=== PATIENT | male | born 1970 | race Caucasian/White ===

== ENCOUNTER 2016-10-12 11:07 | Emergency (ER) | payer OTHER ==
[2016-10-12 11:26] VITALS: O2SAT 97
--- NOTE | 2016-10-12 11:33 | ERPHSYRPT ---
- History of Present Illness Time Seen by Provider: 10/12/16 11:30 Source: patient Exam Limitations: no limitations Patient Subjective Stated Complaint: LEFT KNEE PAIN LEVEL 10 WHEN WALKING LEVEL 3 WHEN LAYING. PT WAS CUTTING A LIMB THAT WAS ON THE GROUND PT DIDN'T KNOW THAT THERE WAS ANOTHER LIMB ATTACHED AND IT FELL ON HIS KNEE. PT DID NOT FALL THE LIMB APPLIED A BUNCH PF PRESSURE. Triage Nursing Assessment: PT WALKED INTO ER PUTTING LIGHT PRESSURE ON THE LEFT KNEE AND NOT BENDING THE KNEE. SKIN IS PINK WARM AND DRY. NO OPEN AREA NOR BRUISING TO THE LEFT KNEE. RESPIRATIONS EVEN AND NON LABORED. Physician History: Patient states that he was sawing a fallen tree, but did not notice there was another tree below. States when he cut the top tree it slid hitting him to the left knee area. Also states that he twisted his knee as well. There is minimal signs of trauma to knee, but states that he has a dull ache to the peripatellar area. Patient also able to ambulate but states it is uncomfortable with weight bearing. Denies any numbness, tingling or weakness distally. Denies any other injuries at this time. Method of Injury: direct blow, twisted Occurred: just prior to arrival Quality: intermittent, aching Severity of Pain-Max: moderate Severity of Pain-Current: moderate Lower Extremities Pain: knee: left Modifying Factors: Improves With: immobilization (improves), movement (worsens) Associated Symptoms: other (able to bear wt.), No dizzy Allergies/Adverse Reactions: No Known Allergies Allergy (Verified 10/12/16 11:35) Home Medications: No Home Meds 1 [facility] 10/12/16 [History] Hx Tetanus, Diphtheria Vaccination/Date Given: Yes (UNKNOWN) Hx Influenza Vaccination/Date Given: Yes (2017) Hx Pneumococcal Vaccination/Date Given: No Immunizations Up to Date: Yes - Review of Systems Constitutional: No Fever, No Chills Eyes: No Symptoms Ears, Nose, & Throat: No Symptoms Respiratory: No Cough, No Dyspnea Cardiac: No Chest Pain, No Edema, No Syncope Abdominal/Gastrointestinal: No Abdominal Pain, No Nausea, No Vomiting, No Diarrhea Genitourinary Symptoms: No Dysuria Musculoskeletal: Joint Pain (L Knee), No Back Pain, No Neck Pain, No Deformity, No Joint Swelling Skin: No Rash Neurological: No Dizziness, No Focal Weakness, No Sensory Changes Psychological: No Symptoms Endocrine: No Symptoms All Other Systems: Reviewed and Negative - Past Medical History Pertinent Past Medical History: Yes Neurological History: No Pertinent History ENT History: No Pertinent History Cardiac History: No Pertinent History Respiratory History: No Pertinent History Endocrine Medical History: No Pertinent History Musculoskeletal History: No Pertinent History GI Medical History: No Pertinent History History: No Pertinent History Psycho-Social History: No Pertinent History Male Reproductive Disorders: No Pertinent History - Past Surgical History Past Surgical History: Yes Neuro Surgical History: No Pertinent History Cardiac: No Pertinent History Respiratory: No Pertinent History Gastrointestinal: No Pertinent History Genitourinary: No Pertinent History Musculoskeletal: No Pertinent History Male Surgical History: No Pertinent History Other Surgical History: WRIST SURGERY-. DENATL SURGEY- - Social History Smoking Status: Never smoker Exposure to second hand smoke: No Drug Use: none Patient Lives Alone: No - Nursing Vital Signs Nursing Vital Signs: Initial Vital Signs Temperature 97.8 F Temperature Source Oral Pulse Rate 69 Respiratory Rate 18 Blood Pressure [Left Arm] 131/88 Pain Intensity 3 - Physical Exam General Appearance: alert Eyes, Ears, Nose, Throat Exam: moist mucous membranes Neck Exam: non-tender, supple Cardiovascular/Respiratory Exam: chest non-tender, normal breath sounds, regular rate/rhythm, no respiratory distress Gastrointestinal/Abdominal Exam: non-tender, guarding Back Exam: normal inspection, No vertebral tenderness Hips Exam: bilateral: non-tender, normal inspection, normal range of motion Legs Exam: bilateral leg: non-tender, normal inspection, normal range of motion Knees Exam: right knee: non-tender, normal range of motion, left knee: bone tenderness (Min tenderness to the patella area), pain (Min tenderness to the patella area), bilateral knee: normal inspection, no evidence of injury Ankle Exam: bilateral ankle: non-tender, normal inspection, normal range of motion, no evidence of injury Neuro/Tendon Exam: normal sensation, normal motor functions Mental Status Exam: alert, oriented x 3, cooperative Skin Exam: normal color, warm, dry SpO2: 97 Oxygen Delivery: Room Air - Course Nursing assessment & vital signs reviewed: Yes - Radiology Exams Left Knee X-ray Interpretation: Interpreted by me, Teleradiologist Report, No Fracture Ordered Tests: Active Orders 24 hr Category Date Time Status KNEE (3 VIEWS) Stat Exams 10/12/16 11:35 Taken Medication Summary Discontinued Medications Generic Name Dose Route Start Last Admin Trade Name Marsha PRN Reason Stop Dose Admin Ibuprofen 600 mg 10/12/16 11:35 10/12/16 11:53 Motrin 600 Mg PO 10/12/16 11:36 600 mg STAT ONE Administration Ibuprofen Confirm 10/12/16 11:39 Motrin 600 Mg Administered 10/12/16 11:40 Dose 600 mg .ROUTE .STK-MED ONE - Progress Progress: improved Progress Note: 10/12/16 12:01 patient was given Motrin 600 mg with some relief of his symptoms. Counseled pt/family regarding: diagnosis, rad results - Departure Time of Disposition: 12:02 Departure Disposition: Home Clinical Impression: Contusion of left knee Condition: Stable Critical Care Time: No Instructions: Knee Sprain, Contusion Additional Instructions: ICE, ELEVATE AFFECTED EXTREMITY, REDNESS AND MOTRIN 800 MG EVERY 8 HOURS WITH FOOD TO DECREASE PAIN AND SWELLING. RETURN FOR WORSE PAIN, SWELLING, NUMBNESS, TINGLING, WEAKNESS OR ANY PROBLEMS Forms: Work/School Release Form
[2016-10-12] MEDS ORDERED: MOTRIN 600 MG PO ONE (11:35)
[2016-10-12] MEDS ORDERED: MOTRIN 600 MG ONE (11:39)
--- NOTE | 2016-10-12 12:05 | XRAY ---
Indication: Pain following injury. Comparison: None 3 views of the left knee intact with tiny infrapatellar spurring and small nonspecific suprapatellar effusion. No other bony, articular, or soft tissue abnormalities.
[2016-10-12 12:24] VITALS: BP 128/70; PULSE 67
== END 2016-10-12 12:18 | disposition home or self-care (01) ==
LOC: ED 11:07
DX: S80.02XA Contusion of left knee, initial encounter (principal); W22.8XXA Striking against or struck by other objects, initial encounter; Y93.89 Activity, other specified
CPT/HCPCS: 73562; 99283; A9270-GY

== ENCOUNTER 2019-05-27 20:51 | Emergency (ER) | payer BC ==
[2019-05-27] MEDS ORDERED: TETRACAINE 0.5% STERI-UNIT SOL OP ONE (21:18)
[2019-05-27] MEDS: TETRACAINE 0.5% STERI-UNIT SOL OP STA (21:43)
--- NOTE | 2019-05-27 21:44 | ERPHSYRPT ---
- History of Present Illness Time Seen by Provider: 05/27/19 21:15 Source: patient Exam Limitations: no limitations Patient Subjective Stated Complaint: pt states, "I went to the eye dr today to try out new contacts and I finally got my rt one out but I cannot get my lt one out". Triage Nursing Assessment: PT ALERT AND ORIENTED X3, PT C/O IRRITATION TO LT EYE FROM NEW CONTACTS TODAY AND CAN'T GET THE LT CONTACT OUT. EYE IS PINK AND RED, AND WATERING. Physician History: IRRITATION TO LT EYE FROM NEW CONTACTS TODAY AND CAN'T GET THE LT CONTACT OUT. EYE IS PINK AND RED, AND WATERING. Timing/Duration: today Location: left eye Severity: moderate Apparent Injury: no Associated Symptoms: pain, sensitivity to light Visual Assistive Devices: Contacts Chemical Exposure: No Allergies/Adverse Reactions: No Known Allergies Allergy (Verified 10/12/16 11:35) Home Medications: No Home Meds [No Home Meds] 1 [facility] 10/12/16 [History] Hx Tetanus, Diphtheria Vaccination/Date Given: Yes Hx Influenza Vaccination/Date Given: Yes Hx Pneumococcal Vaccination/Date Given: No Immunizations Up to Date: Yes - Review of Systems Constitutional: No Fever, No Chills Eyes: No Symptoms Ears, Nose, & Throat: No Symptoms, Other (Left eye - contact lens possibly stuck , C/O Pain, watering) Respiratory: No Cough, No Dyspnea Cardiac: No Chest Pain, No Edema, No Syncope Abdominal/Gastrointestinal: No Abdominal Pain, No Nausea, No Vomiting, No Diarrhea Genitourinary Symptoms: No Dysuria Musculoskeletal: No Back Pain, No Neck Pain Skin: No Rash Neurological: No Dizziness, No Focal Weakness, No Sensory Changes Psychological: No Symptoms Endocrine: No Symptoms All Other Systems: Reviewed and Negative - Past Medical History Pertinent Past Medical History: Yes Neurological History: No Pertinent History ENT History: No Pertinent History Cardiac History: No Pertinent History Respiratory History: No Pertinent History Endocrine Medical History: No Pertinent History Musculoskeletal History: No Pertinent History GI Medical History: No Pertinent History History: No Pertinent History Psycho-Social History: No Pertinent History Male Reproductive Disorders: No Pertinent History - Past Surgical History Past Surgical History: Yes Neuro Surgical History: No Pertinent History Cardiac: No Pertinent History Respiratory: No Pertinent History Gastrointestinal: No Pertinent History Genitourinary: No Pertinent History Musculoskeletal: No Pertinent History Male Surgical History: No Pertinent History Other Surgical History: WRIST SURGERY-. DENTAL SURGEY- - Social History Smoking Status: Never smoker Exposure to second hand smoke: No Drug Use: none Patient Lives Alone: No - Nursing Vital Signs Nursing Vital Signs: Initial Vital Signs Temperature 98.1 F 05/27/19 21:08 Pulse Rate 67 05/27/19 21:08 Respiratory Rate 17 05/27/19 21:08 Blood Pressure 121/77 05/27/19 21:08 O2 Sat by Pulse Oximetry 98 05/27/19 21:08 Pain Scale Pain Intensity 7 - Physical Exam General Appearance: no apparent distress Vision Acuity Right Eye: 20/20 Eye Exam: right eye: normal inspection, left eye: corneal abrasion, bilateral eye: PERRL, EOMI Ears, Nose, Throat Exam: normal ENT inspection, TMs normal, pharynx normal Neck Exam: normal inspection, non-tender, supple Respiratory Exam: normal breath sounds, lungs clear, No chest tenderness, No respiratory distress Cardiovascular Exam: regular rate/rhythm, normal heart sounds, normal peripheral pulses Gastrointestinal Exam: soft, normal bowel sounds Extremity Exam: normal inspection, normal range of motion Neurologic: alert, oriented x 3, cooperative, transmission design engineer II-XII nml as tested, normal mood/affect Skin Exam: normal color Lymphatic: No adenopathy SpO2 Interpretation: normal SpO2: 98 O2 Delivery: Room Air - Course Nursing assessment & vital signs reviewed: Yes Ordered Tests: Medication Summary Discontinued Medications Generic Name Dose Route Start Last Admin Trade Name Christopherq PRN Reason Stop Dose Admin Tetracaine HCl 4 ml 05/27/19 21:17 Tetracaine 0.5% Steri-Unit Jeanie OP 05/27/19 21:18 STAT STA Tetracaine HCl Confirm 05/27/19 21:18 Tetracaine 0.5% Steri-Unit Jeanie Administered 05/27/19 21:19 Dose 4 ml OP .STK-MED ONE - Progress Progress: unchanged Progress Note: attempted contact lens removal. I could not find any contact lens in the eye. After restraining with was stented renetta rosas present. [facility] The patient understood and there agreed that he also wanted me to write him a eyedrops and eye ointment he just in case. [facility] understood [facility] 05/27/19 21:45 Counseled pt/family regarding: diagnosis, need for follow-up (ER today) - Departure Departure Disposition: Home Clinical Impression: Corneal abrasion Qualifiers: Encounter type: initial encounter Laterality: left Qualified Code(s): S05.02XA - Injury of conjunctiva and corneal abrasion without foreign body, left eye, initial encounter Foreign body, eye Qualifiers: Encounter type: initial encounter Laterality: left Qualified Code(s): T15.92XA - Foreign body on external eye, part unspecified, left eye, initial encounter Condition: Stable Critical Care Time: No Instructions: Foreign Body in Eye (DC), Corneal Abrasion (DC) Prescriptions: Erythromycin Base 3.5 gm [Erythromycin 3.5 GM OPHTH.] 1 applic OP QID 3 Days #1 tube Ofloxacin Ophth 5 ml [Ocuflox OPHTHALMIC 5 ML] 2 drops OP QID #1 bottle
[2019-05-27 22:13] VITALS: BP 139/89; PULSE 74; O2SAT 99
== END 2019-05-27 22:07 | disposition home or self-care (01) ==
LOC: ED 20:51
DX: S05.02XA Injury of conjunctiva and corneal abrasion without foreign body, left eye, initial encounter (principal); T15.92XA Foreign body on external eye, part unspecified, left eye, initial encounter
CPT/HCPCS: 99283

== ENCOUNTER 2022-08-07 05:57 | Day surgery (SDC) | payer BC ==
[2022-08-07] MEDS ORDERED: Lactated Ringers 1,000 ML IV ONE (06:39)
[2022-08-07] MEDS ORDERED: Lactated Ringers 1,000 ML IV SCH (07:00)
[2022-08-07] MEDS ORDERED: DIPRIVAN 200 MG/20 ML IV ONE (07:32)
[2022-08-07] MEDS ORDERED: Versed 2 MG/2 ML Injection ONE (07:32)
[2022-08-07] MEDS ORDERED: Xylocaine-Mpf 2% 5 Ml Vial ONE (07:32)
[2022-08-07 08:37] VITALS: O2SAT 100
[2022-08-07 08:46] VITALS: BP 118/98; PULSE 74
--- NOTE | 2022-08-07 09:43 | OP ---
SURGERY DATE/TIME: 08/07/2022 0729 PREOPERATIVE DIAGNOSIS: Screening exam. POSTOPERATIVE DIAGNOSIS: Normal colon. PROCEDURE: Colonoscopy. SURGEON: Dr. Billy. ANESTHESIA: MAC. Medications given by anesthesia department. HISTORY: The patient is a 51-year-old white male patient presenting now for screening colonoscopy. The patient was appraised of the risks of the procedure including the risk of perforation, phlebitis, untoward reaction to medication, bleeding and missed lesions. The patient verbalized his understanding and desired to have the procedure performed. DESCRIPTION OF PROCEDURE: The patient was given the medications by the anesthesia department. He had continuous pulse oximetry, ECG monitoring and intermittent blood pressure monitoring during the examination. He was placed in the left lateral decubitus position. A digital rectal examination was performed and revealed normal anal sphincter tone, no masses and normal prostate. The flexible Olympus pediatric colonoscope was used to intubate the rectum. A view of the colon was developed sequentially to the cecum. Upon insertion and withdrawal, including a retroflex view in the rectum, no mucosal lesions were encountered. The scope was removed from the patient who tolerated the procedure well and was sent back to OP recovery in good condition. The prep was noted to be good.
== END 2022-08-07 08:39 | disposition home or self-care (01) ==
LOC: SDC 05:57 → EDSTATUS 10:56
PROVIDERS: ATTEND Family Medicine
DX: Z12.11 Encounter for screening for malignant neoplasm of colon (principal)
CPT/HCPCS: J2250; J2704

== ENCOUNTER 2024-01-01 06:12 | Day surgery (SDC) | payer BC ==
[2024-01-01] MEDS: Lactated Ringers 1,000 ML IV SCH (07:01)
[2024-01-01 07:09] VITALS: RESP 16
[2024-01-01] MEDS ORDERED: Xylocaine-Mpf 2% 5 Ml Vial ONE (07:55)
[2024-01-01] MEDS ORDERED: DIPRIVAN 200 MG/20 ML IV ONE (07:55)
[2024-01-01] MEDS ORDERED: Versed 2 MG/2 ML Injection ONE (07:55)
[2024-01-01 08:49] VITALS: BP 140/86; PULSE 59; TEMP 97.2; O2SAT 100
--- NOTE | 2024-01-02 08:18 | OP ---
SURGERY DATE/TIME: 01/01/2024 [id number] PREOPERATIVE DIAGNOSIS: Epigastric pain. POSTOPERATIVE DIAGNOSIS: Gastritis. PROCEDURE: Esophagogastroduodenoscopy with cold forceps biopsy of the gastric antrum. SURGEON: Gm Billy MD. ANESTHESIA: Medications were given by the anesthesia department. INDICATIONS: The patient is a 53-year-old white male patient who has been complaining of epigastric pain. He is currently taking omeprazole and famotidine for his discomfort which he has been taking for the past couple of weeks without much improvement. The patient was felt to need to have an endoscopic evaluation. He was apprised of the risks of the procedure including the risk of perforation, phlebitis, untoward reaction to medication, bleeding, and missed lesions. The patient verbalized his understanding and desired to have the procedure performed. DESCRIPTION OF PROCEDURE AND FINDINGS: The patient was given medication by the anesthesia department. He had continuous pulse oximetry, ECG monitoring, and intermittent blood pressure monitoring during the examination. He was placed in the left lateral decubitus position. A bite block was placed. A flexible Olympus gastroscope was used to intubate the oropharynx. I viewed the larynx. It showed some mild inflammation. The esophagus was easily intubated and appeared to be essentially normal throughout its length. The stomach was entered where normal gastric rugal folds were seen. There was noted to be some watermelon-type striping of the gastric antrum. The gastric rugal folds distended nicely with insufflation of air. The scope was passed along the greater curvature of the stomach to the antrum. The pylorus was encountered and intubated. The duodenum was inspected and found to be normal. The scope was withdrawn toward the stomach again. Retroflexed view was obtained of the lesser curvature, fundus, and cardia regions of the stomach and these appeared to be essentially normal. The scope was then redirected toward the gastric antrum where biopsies were obtained to rule out the presence of Helicobacter pylori-type organisms and to confirm gastritis. The scope was then removed from the patient who tolerated the procedure well and was sent back to outpatient recovery in good condition.
== END 2024-01-01 08:59 | disposition home or self-care (01) ==
LOC: SDC 06:12
PROVIDERS: ATTEND Family Medicine
DX: K29.70 Gastritis, unspecified, without bleeding (principal); R10.13 Epigastric pain
CPT/HCPCS: J2250; J2704